=== PATIENT | female | born 1935 | race Caucasian/White ===

== ENCOUNTER 2021-11-17 14:38 | Observation (INO) ==
[2021-11-17 14:59] VITALS: BMI 34.7
[2021-11-17] MEDS ORDERED: DUONEB 0.5 MG/3 MG (3 mL) NEB ONE ×2 (15:33→15:52)
--- NOTE | 2021-11-17 15:56 | RAD ---
HISTORYWEAKNESS, SWELLING BLESTUDYCHEST, 1 VIEWCOMPARISONNoneTECHNIQUEAP view of the chestFINDINGSCardiac silhouette is mildly enlarged. Mediastinal contours appear normal. There are bilateral mild lower lung interstitial opacities. Blunted costophrenic sulci consistent with small pleural effusions. No pneumothorax.IMPRESSIONCardiomegaly with mild bibasilar interstitial opacities that could represent mild pulmonary edema. Small pleural effusions.Electronically signed by: Cirilo Sweet (Nov 17, 2021 15:55:11)
[2021-11-17 15:59] LABS: BASOPHILS % (AUTO) 0.3 % (0.2-1.0); EOSINOPHILS # (AUTO) 0.1 x10^3/uL (0.0-0.2); HEMATOCRIT 40.7 % (36.0-47.0); HEMOGLOBIN 13.3 g/dL (12.0-16.0); LYMPHOCYTES # (AUTO) 0.4 X10^3/uL (1.3-2.9); LYMPHOCYTES % (AUTO) 5.5 % (21.0-51.0); MEAN CORPUSCULAR HEMOGLOBIN 27.4 pg (27.0-34.0); MEAN CORPUSCULAR HGB CONC 32.7 g/dL (33.0-35.0); MEAN CORPUSCULAR VOLUME 83.7 fL (80.0-100.0); MEAN PLATELET VOLUME 9.1 fL (7.4-11.0); MONOCYTES # (AUTO) 0.3 x10^3/uL (0.3-0.8); MONOCYTES % (AUTO) 3.7 % (0.0-13.0); NEUTROPHILS # (AUTO) 7.1 x10^3/uL (2.2-4.8); NEUTROPHILS % (AUTO) 89.5 % (42.0-75.0); RED BLOOD COUNT 4.86 X10^6/uL (3.5-5.4); RED CELL DISTRIBUTION WIDTH 17.5 % (11.6-16.5)
[2021-11-17 16:24] LABS: LACTIC ACID 1.4 mmol/L (0.4-2.0)
[2021-11-17 16:56] LABS: ALBUMIN 2.7 g/dL (3.4-5.0); CALCIUM 8.5 mg/dL (8.5-10.1); CKMB % 3.4 % (<4); COR CA(FOR HYPOALB) 9.5 mg/dL (8.5-10.1); CREATINE KINASE MB 1.2 ng/mL (0-4.0); CREATININE 2.41 mg/dL (0.55-1.02); TOTAL PROTEIN 7.2 g/dL (6.4-8.2)
--- NOTE | 2021-11-17 19:14 | DR.DIZZY ---
HPI Time seen Time Seen by Provider: 11/17/21 17:51 PCP Primary Care Physician: DR. GONZALEZ HPI Comment HPI Comment: A 86 y/o female reerred from her PCPs office to the ED. Sh had been giving some I.M. Lasix in the doctor's office. She had presented there with generalized weakness, poor appetite for some weeks. Noted leg swelling x 2 days. Complaint Chief Complaint:: PT'S DAUGHTER IN LAW STATES PT WAS SENT HERE FROM DR. GONZALEZ'S OFFICE D/T C/O GENERALIZED WEAKNESS & DECREASED APPETITE X WEEKS. PT ALSO C/O BLE SWELLING & REDNESS X2 DAYS. PT DENIES ANY HX OF CHF & COPD. PT WAS GIVEN LASIX IM INJECTION @ DR'S OFFICE [facility]. PT HAS HX OF BLOOD CLOTS. COVID-19 Coronavirus risk:travel/contact w/high risk person: No Has patient experienced Coronavirus symptoms: No Nurses Notes Reviewed Nurses Notes Review: Yes Source History Provided: Patient and Family Member Mode of Arrival Mode of Arrival: Wheelchair Timing Onset of Chief Complaint: 11/03/21 Came on: Gradually Location of Weakness Weakness Location: Generalized Context History of: None Stroke Symptoms: None PMH PMH Past Medical History: Yes Past Medical History: Hypertension Past Surgical History: Yes Surgical History: Angioplasty/Stents and Hysterectomy Family History History of Family Medical Conditions: Yes Family Medical History: Hypertension Travel Risk Coronavirus risk:travel/contact w/high risk person: No Has patient experienced Coronavirus symptoms: No Infectious screening Have you traveled outside the country in the last 6 months?: No Isolation: Standard ROS Review of Systems Constitutional: Malaise, Weakness and Other (poor appetite) Eyes: No Symptoms Reported ENTM: No Symptoms Reported Respiratoy: No Symptoms Reported Cardiovascular: No Symptoms Reported Gastrointestinal/Abdominal: No Symptoms Reported Genitourinary: No Symptoms Reported Neurological: No Symptoms Reported Musculoskeletal: No Symptoms Reported Integumentary: No Symptoms Reported Hematologic/Lymphatic: No Symptoms Reported Endocrine: No Symptoms Reported Psychiatric: No Symptoms Reported PE Vital Signs Vitals: Temperature 95.1 F Pulse Rate 82 Respiratory Rate 60 Blood Pressure 83/58 O2 Sat by Pulse Oximetry 95 General Limitations: No Limitations General Appearance: Alert and In No Apparent Distress Head Head Exam: Normal Inspection, Atraumatic and Normocephalic Eyes Eye exam: Normal Appearance and EOMI ENT ENT Exam: Normal Exam, Normal Oropharynx, Normal External Ear Exam and Mucous Membranes Moist Neck Neck Exam: Normal Inspection, Full ROM and Trachea Midline Chest Chest Inspection: Normal Inspection and Symmetric Chest Wall Rise Respiratory Respiratory Exam: Normal Lung Sounds Bilat Cardiovascular Cardiovascular Exam: Regular Rate, Normal Rhythm, Normal Heart Sounds, +S1 and +S2 Abdominal Exam Abdominal Exam: Normal Inspection, Normal Bowel Sounds and Soft Rectal Rectal Exam: Deferred Extremeties Extremities Exam: Edema (anarsaca with 3+ pitting edema from ankle tp mid thigh b/l. no calf tenerness. ) Back Back Exam: Normal Inspection Neurologic Neurological Exam: Alert and Oriented X3 Psychiatric Psychiatric Exam: Normal Affect and Normal Mood Skin Skin Exam: Intact COURSE Treatment Treatment: Reevaluation 1st: Unchanged Education/Counseling Education/Counseling: Patient, Education and Counseling Educated On: Treatment, Diagnosis, Prognosis and Needs for Follow Up ROR Labs Reviewed Result Diagrams: 11/21/21 05:20 11/21/21 05:20 Laboratory: 11/17/21 15:45 Blood Blood Culture - Final 11/17/21 15:29 Blood Blood Culture - Preliminary WBC 8.0 X10^3/uL (3.6-10.0) 11/17/21 15:29 RBC 4.86 X10^6/uL (3.5-5.4) 11/17/21 15:29 Hgb 13.3 g/dL (12.0-16.0) 11/17/21 15:29 Hct 40.7 % (36.0-47.0) 11/17/21 15:29 MCV 83.7 fL (80.0-100.0) 11/17/21 15:29 MCH 27.4 pg (27.0-34.0) 11/17/21 15:29 MCHC 32.7 g/dL (33.0-35.0) L 11/17/21 15:29 RDW 17.5 % (11.6-16.5) H 11/17/21 15:29 Plt Count 147 X10^3/uL (150.0-450.0) L 11/17/21 15:29 MPV 9.1 fL (7.4-11.0) 11/17/21 15:29 Neut % (Auto) 89.5 % (42.0-75.0) H 11/17/21 15:29 Lymph % (Auto) 5.5 % (21.0-51.0) L 11/17/21 15:29 [place] % (Auto) 3.7 % (0.0-13.0) 11/17/21 15:29 Eos % (Auto) 1.0 % (0.9-2.9) 11/17/21 15:29 Baso % (Auto) 0.3 % (0.2-1.0) 11/17/21 15:29 Neut # (Auto) 7.1 x10^3/uL (2.2-4.8) H 11/17/21 15:29 Lymph # (Auto) 0.4 X10^3/uL (1.3-2.9) L 11/17/21 15:29 [place] # (Auto) 0.3 x10^3/uL (0.3-0.8) 11/17/21 15:29 Eos # (Auto) 0.1 x10^3/uL (0.0-0.2) 11/17/21 15:29 Baso # (Auto) 0.0 X10^3/uL (0.0-0.1) 11/17/21 15:29 Absolute Nucleated RBC 0.1 /100WBC 11/17/21 15:29 PT 18.7 SECONDS (11.8-14.3) 11/17/21 15:29 INR Target Range - 11/17/21 15:29 INR 1.65 (0.8-1.3) H 11/17/21 15:29 APTT 31.0 SECONDS (22.9-36.5) 11/17/21 15:29 PTT Comment - 11/17/21 15:29 D-Dimer 2.99 ug/ml (0.0-0.57) H* 11/17/21 15:29 Sodium 133 mmol/L (136-145) L 11/17/21 15:29 Corrected Sodium 133 mmol/L (136-145) L 11/17/21 15:29 Potassium 5.2 mmol/L (3.5-5.1) H 11/17/21 15:29 Chloride 99 mmol/L (98-107) 11/17/21 15:29 Carbon Dioxide 22.0 mmol/L (21-32) 11/17/21 15:29 BUN 112 mg/dL (7-18) H 11/17/21 15:29 Creatinine 2.41 mg/dL (0.55-1.02) H 11/17/21 15:29 Est GFR (MDRD) Af Amer 24 (>60) L 11/17/21 15:29 Est GFR (MDRD) Non-Af 20 (>60) L 11/17/21 15:29 Glucose 114 mg/dL (65-99) H 11/17/21 15:29 Lactic Acid 1.4 mmol/L (0.4-2.0) 11/17/21 15:29 Calcium 8.5 mg/dL (8.5-10.1) 11/17/21 15: Corrected Calcium 9.5 mg/dL (8.5-10.1) 11/17/21 15: Total Bilirubin 0.80 mg/dL (0.2-1.0) 11/17/21 15:29 AST 49 Units/L (15-37) H 11/17/21 15: ALT 59 Units/L (12-78) 11/17/21 15:29 Alkaline Phosphatase 477 Units/L (46-116) H 11/17/21 15:29 Creatine Kinase 24 Units/L (26-192) L 11/17/21 21:20 CK-MB (CK-2) 1.2 ng/mL (0-4.0) 11/17/21 21:20 CK/CKMB % Calc 5.0 % (<4) 11/17/21 21:20 Troponin I High Sens 7.9 ng/L (4.0-60.0) 11/17/21 21:20 B-Natriuretic Peptide 400 pg/mL (0-79) H 11/17/21 15:29 Total Protein 7.2 g/dL (6.4-8.2) 11/17/21 15: Albumin 2.7 g/dL (3.4-5.0) L 11/17/21 15: Globulin 4.5 g/dL (2.5-4.5) 11/17/21 15:29 Albumin/Globulin Ratio 0.6 Ratio (1.1-2.1) L 11/17/21 15:29 Specimen Type Catherized urine 11/17/21 21:26 Urine Color Yellow (YELLOW) 11/17/21 21: Urine Appearance Clear (CLEAR) 11/17/21 21: Urine pH 5.0 (5.0 - 8.0) 11/17/21 21: Ur Specific [place] 1.010 (1.000-1.030) 11/17/21 21:26 Urine Protein 1+ (NEGATIVE) 11/17/21 21: Urine Glucose (UA) Negative (NEGATIVE) 11/17/21 21: Urine Ketones Negative (NEGATIVE) 11/17/21 21:26 Urine Occult Blood 1+ (NEGATIVE) 11/17/21 21: Urine Nitrite Negative (NEGATIVE) 11/17/21 21: Urine Bilirubin Negative (NEGATIVE) 11/17/21 21: Urine Urobilinogen Normal (NORMAL) 11/17/21 21:26 Ur Leukocyte Esterase 1+ (NEGATIVE) 11/17/21 21:26 Urine RBC 3-5 /HPF (0-3) A 11/17/21 21:26 Urine WBC 3-5 /HPF (0-5) 11/17/21 21:26 Ur Squamous Epith Cells Rare /HPF (NEGATIVE) 11/17/21 21:26 Urine Bacteria Trace /HPF (NEGATIVE) 11/17/21 21: Urine Yeast Moderate /HPF (NEGATIVE) 11/17/21 21:26 Ur Culture Indicated? No/not indicated 11/17/21 21:26 SARS-CoV-2 (PCR) Negative (NEGATIVE) 11/17/21 19:01 Influenza Type A (PCR) Negative (NEGATIVE) 11/17/21 19:01 Influenza Type B (PCR) Negative (NEGATIVE) 11/17/21 19:01 RSV (PCR) Negative (NEGATIVE) 11/17/21 19:01 Opioid Opioid Risk Tool Age (Jv box if 16-45): No History of Preadolescent Sexual Abuse: No Total: 0 Total Score Risk Category: Low Risk Copyright: Meng MOULTON predicting aberrant behaviors Diagnosis Discharge Problem: Anasarca, D-dimer, elevated, Hypoalbuminemia CHF (congestive heart failure) Qualifiers: Heart failure type: unspecified Heart failure chronicity: acute Qualified Code(s): I50.9 - Heart failure, unspecified CKD (chronic kidney disease) Qualifiers: Chronic kidney disease stage: stage 4 (severe) Qualified Code(s): N18.4 - Chronic kidney disease, stage 4 (severe) ADDITIONAL NOTES Additional Notes Additional Notes: Name: Camryn Munoz#: [id number]: [id number] : 1935Sex: FLocation: ER Order Number(s): [id number](s):CHEST, 1 VIEW Ordering Physician: JONAS ANNA Primary Care: Gopal Gonzalez M.D. Service Date: 11/17/21 Service Time: 1514 HISTORY WEAKNESS, SWELLING BLE STUDY CHEST, 1 VIEW COMPARISON None TECHNIQUE AP view of the chest FINDINGS Cardiac silhouette is mildly enlarged. Mediastinal contours appear normal. There are bilateral mild lower lung interstitial opacities. Blunted costophrenic sulci consistent with small pleural effusions. No pneumothorax. IMPRESSION Cardiomegaly with mild bibasilar interstitial opacities that could represent mild pulmonary edema. Small pleural effusions. Electronically signed by: Cirilo Sweet (Nov 17, 2021 15:55:11) Report Electronically signed: 11/17/21 1556 CC: Jonas Anna
[2021-11-17] MEDS ORDERED: ALBUMIN HUMAN 25%- 100 ML 100 ML IV ONE (19:40)
[2021-11-17] MEDS ORDERED: LASIX IVP ONE (19:46)
[2021-11-17] MEDS ORDERED: LASIX ONE (21:11)
[2021-11-17 21:39] LABS: BILIRUBIN,URINE NEGATIVE (NEGATIVE); BLOOD/HEMOGLOBIN,URINE 1+ (NEGATIVE); GLUCOSE, URINE NEGATIVE (NEGATIVE); KETONES,URINE NEGATIVE (NEGATIVE); LEUKOCYTE ESTERASE ,URINE 1+ (NEGATIVE); NITRITES,URINE NEGATIVE (NEGATIVE); PROTEIN,URINE 1+ (NEGATIVE); UROBILINOGEN,URINE NORMAL (NORMAL)
[2021-11-17 21:46] LABS: CREATINE KINASE MB 1.2 ng/mL (0-4.0)
[2021-11-17 21:50] LABS: APPEARANCE,URINE CLEAR (CLEAR); COLOR,URINE YELLOW (YELLOW)
[2021-11-17 21:51] LABS: BACTERIA,URINE TRACE /HPF (NEGATIVE); SQUAMOUS EPITHELIAL CELL,UR RARE /HPF (NEGATIVE); YEAST,URINE MODERATE /HPF (NEGATIVE)
[2021-11-18 05:46] LABS: ALANINE AMINOTRANSFERASE 51 Units/L (12-78); ALBUMIN 3.1 g/dL (3.4-5.0); ALKALINE PHOSPHATASE 394 Units/L (46-116); ASPARTATE AMINO TRANSFERASE 41 Units/L (15-37); BLOOD UREA NITROGEN 113 mg/dL (7-18); CALCIUM 8.4 mg/dL (8.5-10.1); CARBON DIOXIDE 20.3 mmol/L (21-32); CHLORIDE 101 mmol/L (98-107); CKMB % 4.6 % (<4); COR CA(FOR HYPOALB) 9.1 mg/dL (8.5-10.1); CREATINE KINASE 22 Units/L (26-192); CREATINE KINASE MB < 1.0 ng/mL (0-4.0); CREATININE 2.46 mg/dL (0.55-1.02); SODIUM 136 mmol/L (136-145); TOTAL PROTEIN 6.7 g/dL (6.4-8.2); eGFR NON BLACK RACES 20 (>60)
--- NOTE | 2021-11-18 08:58 | US ---
HISTORYRENAL FAILURE, PULMONARY EDEMA, CHFSTUDYRENAL USCOMPARISONNoneTECHNIQUERenal sonogram.FINDINGSThe right kidney measures 7.5 x 3.8 x 3.7 cm. The left kidney measures 7.7 x 4.1 x 4.2 cm. Borderline cortical thickness bilaterally at 1 cm. Normal echogenicity bilaterally. Smooth contours bilaterally. No hydronephrosis. No obvious renal calculus or mass. Normal doppler waveforms are not well identified on either side. [place] catheter in situ. Bilateral pleural effusions incidentally noted.IMPRESSIONThe kidneys are small. Normal doppler waveforms are not identified in the kidneys. This could be secondary to severe arterial stenosis. Consider abdomen CTA for further evaluation.Electronically signed by: Cirilo Sweet (Nov 18, 2021 08:56:59)
[2021-11-18] MEDS ORDERED: ZITHROMAX INJ 500 MG VIAL IV ONE (11:00)
[2021-11-18] MEDS ORDERED: NS 250 ML IV 250 ML IV ONE ×2 (11:01→11:05)
[2021-11-18] MEDS: DIFLUCAN 100 MG IV (MIX by PHARMACY)* 100 MG/50 ML BAG IV SCH (11:08)
[2021-11-18] MEDS: ZITHROMAX INJ 500 MG VIAL 500 MG in NS 250 ML IV 250 ML IV SCH (11:08)
[2021-11-18] MEDS: ZOSYN VIAL 2.25 GRAMS 2.25 G in NS 100 ML IV + SPIKE MINIBAG* 100 ML IV SCH ×3 (11:08→21:54)
--- NOTE | 2021-11-18 18:44 | DR.H&P ---
H&P - History & Physical for Day of: H&P Date: 11/17/21 - Chief Complaint Chief Complaint: Edema, SOB - History of Present Illness History of Present Illness: Patient is a 86 year ol wf who is being admitted due to CHF exacerbation. Patient has a PMH of CHF, DVT and PE, CKD, HTN, chronic pain. Patient is cared for at home by family. Patient reports dyspnea and pain to bilateral lower extremities. Patient was seen [facility] earlier today. Patient's caregiver reports patient's R leg is weeping and L leg is swelling and is 4+ pitting edema, generalized weakness and decreased appetite. Also yeast to skin folds. Patient is a poor historian. 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) - Past Surgical History Surgical History: Cholecystectomy - Family History Family Medical History: Diabetes Mellitus, Cancer - Social History Does patient currently use any type of tobacco product: No Have you used tobacco products in the last 12 months: No Does any household member use tobacco: No Alcohol Use: None Drug Use: Prescription Drugs - Medications Home Medications: No Known Drug Allergies Allergy (Verified 11/17/21 14:59) CONTINUE taking the following medications amlodipine 5 mg PO DAILY 11/18/21 [History] - Review of Systems Constitutional: See HPI Eyes: See HPI ENT: See HPI Respiratory: See HPI Cardiovascular: See HPI Gastrointestinal: See HPI Genitourinary: See HPI Musculoskeletal: See HPI Skin: See HPI Neurological: See HPI - Physical Exam Vital Signs: Temperature 97.6 F Pulse Rate [Bilateral Radial] 87 Pulse Rate 85 Respiratory Rate 34 Blood Pressure [Left Arm] 106/50 Blood Pressure 117/59 O2 Sat by Pulse Oximetry 98 Oriented: Not Oriented Eyes: Normal Ear: Normal Nose: Normal Throat: Normal Respiratory: Diminished Throughout, Rales Throughout Cardiovascular: Murmur, Edema, Other (+4 bilateral lower ext edema) : Other (bruner with adequate uop) Auscultation: Bowel Sounds: Normal, Other (large abdominal hernia) Palpation: Normal Tenderness: Normal Skin: Decreased Turgur, Bruising Musculoskeletal: Instability (Not ambulatory) Psychiatric: Normal Mood Description: Calm, Flat Affect: Flat Speech Pattern: Clear, Inappropriate - Assessment/Plan (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 KVO fluids. Home meds. Oxygen supplementation (chronic oxygen) (5) CKD (chronic kidney disease) Qualifiers: Chronic kidney disease stage: stage 4 (severe) Qualified Code(s): N18.4 - Chronic kidney disease, stage 4 (severe) Status: Acute (6) D-dimer, elevated Status: Chronic - Allergies Allergies/Adverse Reactions: Allergies Allergy/AdvReac Type Severity Reaction Status Date / Time No Known Drug Allergies Allergy Verified 11/17/21 14:59
--- NOTE | 2021-11-18 19:01 | PCM.PROG ---
Progress Note - Subjective Subjective: Patient is a 86 year old chronically appearing white female who was admitted due to CHF and pulm edema. Renal function is mildly worse than baseline; baseline on outpatient labs reviewed through our office reveal baseline creat 1.5-2.0. Patient has PMH of PE and DVT (on Eliquis at home; may need decrease dose). Unable to perform any NM testing on arterys; however creatnine only mildly worse than baseline (monitor). Patient appears SOB; IV lasix BID-watch labs. No other concerns at present. - Past Medical Family Social History Past Med/Fam/Surg Hx: No changes since H&P Allergies: Allergies No Known Drug Allergies Allergy (Verified 11/17/21 14:59) - Review of Systems ROS: No change since H&P - Vital Signs and I&O's Vital Signs: Temperature 97.6 F Pulse Rate [Bilateral Radial] 87 Pulse Rate 85 Respiratory Rate 34 Blood Pressure [Left Arm] 106/50 Blood Pressure 117/59 O2 Sat by Pulse Oximetry 98 Intake and Output: Intake & Output 11/15/21 11/16/21 11/17/21 11/18/21 23:59 23:59 23:59 23:59 Intake Total 120 / 120 880 / 880 Output Total 610 / 610 Balance 100 / 100 270 / 270 - Physical Exam Oriented: Not Oriented Eyes: Normal Ear: Normal Nose: Normal Throat: Normal Respiratory: Generalized, Diminished Cardiovascular: Murmur, Edema, Other (+4 bilateral lower ext edema, with weeping) : Other (bruner with adequate uop) Auscultation: Bowel Sounds: Normal, Other (large abdominal hernia) Palpation: Normal Tenderness: Normal Skin: Decreased Turgur, Bruising Musculoskeletal: Instability (Not ambulatory) Psychiatric: Normal Mood Description: Calm, Flat Affect: Flat Speech Pattern: Clear, Inappropriate - Laboratory and Diagnostics Result Diagrams: 11/17/21 15:29 11/18/21 05:10 Labs: 11/17/21 15:45 Blood Blood Culture - Preliminary Laboratory WBC 8.0 X10^3/uL (3.6-10.0) 11/17/21 15:29 RBC 4.86 X10^6/uL (3.5-5.4) 11/17/21 15:29 Hgb 13.3 g/dL (12.0-16.0) 11/17/21 15: Hct 40.7 % (36.0-47.0) 11/17/21 15: MCV 83.7 fL (80.0-100.0) 11/17/21 15: MCH 27.4 pg (27.0-34.0) 11/17/21 15: MCHC 32.7 g/dL (33.0-35.0) L 11/17/21: RDW 17.5 % (11.6-16.5) H 11/17/21 15: Plt Count 147 X10^3/uL (150.0-450.0) L 11/17/21: MPV 9.1 fL (7.4-11.0) 11/17/21: Neut % (Auto) 89.5 % (42.0-75.0) H 11/17/21: Lymph % (Auto) 5.5 % (21.0-51.0) L 11/17/21: [place] % (Auto) 3.7 % (0.0-13.0) 11/17/21: Eos % (Auto) 1.0 % (0.9-2.9) 11/17/21: Baso % (Auto) 0.3 % (0.2-1.0) 11/17/21: Neut # (Auto) 7.1 x10^3/uL (2.2-4.8) H 11/17/21: Lymph # (Auto) 0.4 X10^3/uL (1.3-2.9) L 11/17/21 15: [place] # (Auto) 0.3 x10^3/uL (0.3-0.8) 11/17/21: Eos # (Auto) 0.1 x10^3/uL (0.0-0.2) 11/17/21: Baso # (Auto) 0.0 X10^3/uL (0.0-0.1) 11/17/21 15: Absolute Nucleated RBC 0.1 /100WBC 11/17/21 15: PT 18.7 SECONDS (11.8-14.3) 01/19/22 15:29 INR Target Range - 11/17/21 15:29 INR 1.65 (0.8-1.3) H 11/17/21 15:29 APTT 31.0 SECONDS (22.9-36.5) 11/17/21 15:29 PTT Comment - 11/17/21 15:29 D-Dimer 2.99 ug/ml (0.0-0.57) H* 11/17/21 15:29 Sodium 136 mmol/L (136-145) 11/18/21 05:10 Corrected Sodium TNP 11/18/21 05:10 Potassium 5.0 mmol/L (3.5-5.1) 11/18/21 05:10 Chloride 101 mmol/L (98-107) 11/18/21 05:10 Carbon Dioxide 20.3 mmol/L (21-32) L 11/18/21 05:10 BUN 113 mg/dL (7-18) H 11/18/21 05:10 Creatinine 2.46 mg/dL (0.55-1.02) H 11/18/21 05:10 Est GFR (MDRD) Af Amer 24 (>60) L 11/18/21 05:10 Est GFR (MDRD) Non-Af 20 (>60) L 11/18/21 05:10 Glucose 103 mg/dL (65-99) H 11/18/21 05:10 Lactic Acid 1.4 mmol/L (0.4-2.0) 11/17/21 15:29 Calcium 8.4 mg/dL (8.5-10.1) L 11/18/21 05:10 Corrected Calcium 9.1 mg/dL (8.5-10.1) 11/18/21 05:10 Total Bilirubin 1.00 mg/dL (0.2-1.0) 11/18/21 05:10 AST 41 Units/L (15-37) H 11/18/21 05:10 ALT 51 Units/L (12-78) 11/18/21 05:10 Alkaline Phosphatase 394 Units/L (46-116) H 11/18/21 05:10 Creatine Kinase 22 Units/L (26-192) L 11/18/21 05:10 CK-MB (CK-2) < 1.0 ng/mL (0-4.0) 11/18/21 05:10 CK/CKMB % Calc 4.6 % (<4) 11/18/21 05:10 Troponin I High Sens 9.2 ng/L (4.0-60.0) 11/18/21 05:10 B-Natriuretic Peptide 400 pg/mL (0-79) H 11/17/21 15:29 Total Protein 6.7 g/dL (6.4-8.2) 11/18/21 05:10 Albumin 3.1 g/dL (3.4-5.0) L 11/18/21 05:10 Globulin 3.6 g/dL (2.5-4.5) 11/18/21 05:10 Albumin/Globulin Ratio 0.9 Ratio (1.1-2.1) L 11/18/21 05:10 Specimen Type Catherized urine 11/17/21 21: Urine Color Yellow (YELLOW) 11/17/21 21: Urine Appearance Clear (CLEAR) 11/17/21 21: Urine pH 5.0 (5.0 - 8.0) 11/17/21 21: Ur Specific [place] 1.010 (1.000-1.030) 11/17/21 21: Urine Protein 1+ (NEGATIVE) 11/17/21 21: Urine Glucose (UA) Negative (NEGATIVE) 11/17/21 21: Urine Ketones Negative (NEGATIVE) 11/17/21 21: Urine Occult Blood 1+ (NEGATIVE) 11/17/21 21: Urine Nitrite Negative (NEGATIVE) 11/17/21 21: Urine Bilirubin Negative (NEGATIVE) 11/17/21 21: Urine Urobilinogen Normal (NORMAL) 11/17/21 21: Ur Leukocyte Esterase 1+ (NEGATIVE) 11/17/21 21: Urine RBC 3-5 /HPF (0-3) A 11/17/21 21: Urine WBC 3-5 /HPF (0-5) 11/17/21 21: Ur Squamous Epith Cells Rare /HPF (NEGATIVE) 11/17/21 21: Urine Bacteria Trace /HPF (NEGATIVE) 11/17/21 21: Urine Yeast Moderate /HPF (NEGATIVE) 11/17/21 21: Ur Culture Indicated? 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 KVO fluids. Home meds. Oxygen supplementation (chronic oxygen) (6) CKD (chronic kidney disease) Status: Acute Qualifiers: Chronic kidney disease stage: stage 4 (severe) Qualified Code(s): N18.4 - Chronic kidney disease, stage 4 (severe) (7) D-dimer, elevated Status: Chronic
[2021-11-18] MEDS: ELIQUIS PO SCH (21:54)
[2021-11-19] MEDS ORDERED: BUTT CREAM (COMPOUND) ONE (00:37)
[2021-11-19] MEDS: ZOSYN VIAL 2.25 GRAMS 2.25 G in NS 100 ML IV + SPIKE MINIBAG* 100 ML IV SCH ×2 (05:12→14:29)
[2021-11-19 06:32] LABS: BASOPHILS # (AUTO) 0.1 X10^3/uL (0.0-0.1); BASOPHILS % (AUTO) 0.8 % (0.2-1.0); EOSINOPHILS # (AUTO) 0.1 x10^3/uL (0.0-0.2); EOSINOPHILS % (AUTO) 1.5 % (0.9-2.9); HEMATOCRIT 35.2 % (36.0-47.0); HEMOGLOBIN 11.6 g/dL (12.0-16.0); LYMPHOCYTES # (AUTO) 0.4 X10^3/uL (1.3-2.9); LYMPHOCYTES % (AUTO) 6.3 % (21.0-51.0); MEAN CORPUSCULAR HEMOGLOBIN 27.5 pg (27.0-34.0); MEAN CORPUSCULAR HGB CONC 32.9 g/dL (33.0-35.0); MEAN CORPUSCULAR VOLUME 83.5 fL (80.0-100.0); MONOCYTES # (AUTO) 0.3 x10^3/uL (0.3-0.8); MONOCYTES % (AUTO) 4.2 % (0.0-13.0); NEUTROPHILS # (AUTO) 5.8 x10^3/uL (2.2-4.8); NEUTROPHILS % (AUTO) 87.2 % (42.0-75.0); RED BLOOD COUNT 4.22 X10^6/uL (3.5-5.4); RED CELL DISTRIBUTION WIDTH 17.6 % (11.6-16.5); WHITE BLOOD COUNT 6.6 X10^3/uL (3.6-10.0)
--- NOTE | 2021-11-19 06:33 | RAD ---
HISTORYDYSPNEASTUDYCHEST, 1 [id number]/19/2022.TECHNIQUEAP view of the chestFINDINGSThe cardiac silhouette is stably enlarged. Mediastinal contours appear stable. Similar appearance of mild hazy and scattered interstitial pulmonary opacities. Blunted costophrenic sulci suspicious for small pleural effusions. No pneumothorax identified. Soft tissue attenuation limits evaluation.IMPRESSIONCardiomegaly with interstitial opacities that may represent mild pulmonary edema. Suspect small pleural effusion. Similar appearance to prior.Electronically signed by: Cirilo Sweet (Nov 19, 2021 06:32:04)
[2021-11-19 06:38] LABS: ALBUMIN 2.8 g/dL (3.4-5.0); CALCIUM 8.4 mg/dL (8.5-10.1); COR CA(FOR HYPOALB) 9.4 mg/dL (8.5-10.1); CREATININE 2.3 mg/dL (0.55-1.02); TOTAL PROTEIN 6.4 g/dL (6.4-8.2)
[2021-11-19] MEDS: DIFLUCAN 100 MG IV (MIX by PHARMACY)* 100 MG/50 ML BAG IV SCH (08:46)
--- NOTE | 2021-11-19 11:20 | PCM.PROG ---
Progress Note - Subjective Subjective: Patient is a 86 year old chronically appearing white female who was admitted due to CHF and pulm edema. Renal function is mildly worse than baseline; baseline on outpatient labs reviewed through our office reveal baseline creat 1.5-2.0. Patient has PMH of PE and DVT (on Eliquis at home; may need decrease dose at discharge due to age and ckd-history of dialysis however no longer on dialysis). SOB has improved. Spoke with patient family. No other concerns at present. Cont orders and lasix. Trend CXR and labs. - Past Medical Family Social History Past Med/Fam/Surg Hx: No changes since H&P Allergies: Allergies No Known Drug Allergies Allergy (Verified 11/17/21 14:59) - Review of Systems ROS: No change since H&P - Vital Signs and I&O's Vital Signs: Temperature 97.4 F Pulse Rate [Bilateral Radial] 98 Pulse Rate 85 Respiratory Rate 28 Blood Pressure [Left Arm] 101/54 Blood Pressure 117/59 O2 Sat by Pulse Oximetry 99 Intake and Output: Intake & Output 11/16/21 11/17/21 11/18/21 11/19/21 23:59 23:59 23:59 23:59 Intake Total 120 / 120 1030 / 1030 0 / 0 Output Total 810 / 810 300 / 300 Balance 100 / 100 220 / 220 -300 / -300 - Physical Exam Oriented: Not Oriented Eyes: Normal Ear: Normal Nose: Normal Throat: Normal Respiratory: Generalized, Diminished Cardiovascular: Murmur, Edema, Other (+4 bilateral lower ext edema, with weeping) : Other (bruner with adequate uop) Auscultation: Bowel Sounds: Normal, Other (large abdominal hernia) Tenderness: Normal Skin: Decreased Turgur, Bruising Musculoskeletal: Instability (Not ambulatory) Psychiatric: Normal Mood Description: Calm, Flat Affect: Flat Speech Pattern: Appropriate - Laboratory and Diagnostics Result Diagrams: 11/19/21 06:05 11/19/21 06:05 Labs: 11/17/21 15:45 Blood Blood Culture - Preliminary Laboratory WBC 6.6 X10^3/uL (3.6-10.0) 11/19/21 06:05 RBC 4.22 X10^6/uL (3.5-5.4) 11/19/21 06:05 Hgb 11.6 g/dL (12.0-16.0) L 11/19/21 06:05 Hct 35.2 % (36.0-47.0) L 11/19/21 06:05 MCV 83.5 fL (80.0-100.0) 11/19/21 06:05 MCH 27.5 pg (27.0-34.0) 11/19/21 06:05 MCHC 32.9 g/dL (33.0-35.0) L 11/19/21 06:05 RDW 17.6 % (11.6-16.5) H 11/19/21 06:05 Plt Count 138 X10^3/uL (150.0-450.0) L 11/19/21 06:05 MPV 9.0 fL (7.4-11.0) 11/19/21 06:05 Neut % (Auto) 87.2 % (42.0-75.0) H 11/19/21 06:05 Lymph % (Auto) 6.3 % (21.0-51.0) L 11/19/21 06:05 [place] % (Auto) 4.2 % (0.0-13.0) 11/19/21 06:05 Eos % (Auto) 1.5 % (0.9-2.9) 11/19/21 06:05 Baso % (Auto) 0.8 % (0.2-1.0) 11/19/21 06:05 Neut # (Auto) 5.8 x10^3/uL (2.2-4.8) H 11/19/21 06:05 Lymph # (Auto) 0.4 X10^3/uL (1.3-2.9) L 11/19/21 06:05 [place] # (Auto) 0.3 x10^3/uL (0.3-0.8) 11/19/21 06:05 Eos # (Auto) 0.1 x10^3/uL (0.0-0.2) 11/19/21 06:05 Baso # (Auto) 0.1 X10^3/uL (0.0-0.1) 11/19/21 06:05 Absolute Nucleated RBC 0.0 /100WBC 11/19/21 06:05 PT 18.1 SECONDS (11.8-14.3) 11/19/21 06:05 INR Target Range - 11/19/21 06:05 INR 1.58 (0.8-1.3) H 11/19/21 06:05 APTT 31.0 SECONDS (22.9-36.5) 11/17/21 15:29 PTT Comment - 11/17/21 15:29 D-Dimer 2.99 ug/ml (0.0-0.57) H* 11/17/21 15:29 Sodium 139 mmol/L (136-145) 11/19/21 06:05 Corrected Sodium 140 mmol/L (136-145) 11/19/21 06:05 Potassium 4.8 mmol/L (3.5-5.1) 11/19/21 06:05 Chloride 105 mmol/L (98-107) 11/19/21 06:05 Carbon Dioxide 22.0 mmol/L (21-32) 11/19/21 06:05 BUN 109 mg/dL (7-18) H 11/19/21 06:05 Creatinine 2.30 mg/dL (0.55-1.02) H 11/19/21 06:05 Est GFR (MDRD) Af Amer 26 (>60) L 11/19/21 06:05 Est GFR (MDRD) Non-Af 21 (>60) L 11/19/21 06:05 Glucose 129 mg/dL (65-99) H 11/19/21 06:05 Lactic Acid 1.4 mmol/L (0.4-2.0) 11/17/21 15:29 Calcium 8.4 mg/dL (8.5-10.1) L 11/19/21 06:05 Corrected Calcium 9.4 mg/dL (8.5-10.1) 11/19/21 06:05 Total Bilirubin 0.90 mg/dL (0.2-1.0) 11/19/21 06:05 AST 45 Units/L (15-37) H 11/19/21 06:05 ALT 53 Units/L (12-78) 11/19/21 06:05 Alkaline Phosphatase 408 Units/L (46-116) H 11/19/21 06:05 Creatine Kinase 22 Units/L (26-192) L 11/18/21 05:10 CK-MB (CK-2) < 1.0 ng/mL (0-4.0) 11/18/21 05:10 CK/CKMB % Calc 4.6 % (<4) 11/18/21 05:10 Troponin I High Sens 9.2 ng/L (4.0-60.0) 11/18/21 05:10 B-Natriuretic Peptide 400 pg/mL (0-79) H 11/17/21 15:29 Total Protein 6.4 g/dL (6.4-8.2) 11/19/21 06:05 Albumin 2.8 g/dL (3.4-5.0) L 11/19/21 06:05 Globulin 3.6 g/dL (2.5-4.5) 11/19/21 06:05 Albumin/Globulin Ratio 0.8 Ratio (1.1-2.1) L 11/19/21 06:05 Specimen Type Catherized urine 11/17/21 21: Urine Color Yellow (YELLOW) 11/17/21 21: Urine Appearance Clear (CLEAR) 11/17/21 21: Urine pH 5.0 (5.0 - 8.0) 11/17/21 21: Ur Specific [place] 1.010 (1.000-1.030) 11/17/21 21: Urine Protein 1+ (NEGATIVE) 11/17/21 21: Urine Glucose (UA) Negative (NEGATIVE) 11/17/21 21: Urine Ketones Negative (NEGATIVE) 11/17/21 21: Urine Occult Blood 1+ (NEGATIVE) 11/17/21 21: Urine Nitrite Negative (NEGATIVE) 11/17/21 21: Urine Bilirubin Negative (NEGATIVE) 11/17/21 21: Urine Urobilinogen Normal (NORMAL) 11/17/21 21: Ur Leukocyte Esterase 1+ (NEGATIVE) 11/17/21 21: Urine RBC 3-5 /HPF (0-3) A 11/17/21 21: Urine WBC 3-5 /HPF (0-5) 11/17/21 21: Ur Squamous Epith Cells Rare /HPF (NEGATIVE) 11/17/21 21: Urine Bacteria Trace /HPF (NEGATIVE) 11/17/21 21: Urine Yeast Moderate /HPF (NEGATIVE) 11/17/21 21:26 Ur Culture Indicated? 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 KVO fluids. Home meds. Oxygen supplementation (chronic oxygen) (6) CKD (chronic kidney disease) Status: Acute Qualifiers: Chronic kidney disease stage: stage 4 (severe) Qualified Code(s): N18.4 - Chronic kidney disease, stage 4 (severe) (7) D-dimer, elevated Status: Chronic
[2021-11-19] MEDS: ELIQUIS PO SCH ×2 (12:08→21:16)
[2021-11-19] MEDS: LASIX IVP SCH ×2 (12:08→17:23)
[2021-11-19] MEDS: ZITHROMAX INJ 500 MG VIAL 500 MG in NS 250 ML IV 250 ML IV SCH (12:09)
[2021-11-19] MEDS ORDERED: NS 250 ML IV 250 ML IV ONE (17:24)
[2021-11-19] MEDS ORDERED: ELIQUIS PO ONE (21:00)
[2021-11-19] MEDS ORDERED: LASIX IVP ONE (21:00)
[2021-11-20] MEDS ORDERED: DIFLUCAN 200 MG IV PREMIX* 200 MG/100 ML BAG IV ONE (13:03)
[2021-11-20 13:33] LABS: ALBUMIN 2.5 g/dL (3.4-5.0); CALCIUM 8.1 mg/dL (8.5-10.1); COR CA(FOR HYPOALB) 9.3 mg/dL (8.5-10.1); CREATININE 2.12 mg/dL (0.55-1.02)
[2021-11-20 13:49] LABS: BASOPHILS % (AUTO) 0.7 % (0.2-1.0); EOSINOPHILS # (AUTO) 0.1 x10^3/uL (0.0-0.2); EOSINOPHILS % (AUTO) 2.1 % (0.9-2.9); HEMOGLOBIN 11.1 g/dL (12.0-16.0); LYMPHOCYTES # (AUTO) 0.3 X10^3/uL (1.3-2.9); LYMPHOCYTES % (AUTO) 4.3 % (21.0-51.0); MEAN CORPUSCULAR HEMOGLOBIN 27.5 pg (27.0-34.0); MEAN CORPUSCULAR HGB CONC 32.5 g/dL (33.0-35.0); MEAN CORPUSCULAR VOLUME 84.5 fL (80.0-100.0); MEAN PLATELET VOLUME 9.2 fL (7.4-11.0); MONOCYTES # (AUTO) 0.3 x10^3/uL (0.3-0.8); MONOCYTES % (AUTO) 3.7 % (0.0-13.0); NEUTROPHILS # (AUTO) 6.2 x10^3/uL (2.2-4.8); NEUTROPHILS % (AUTO) 89.2 % (42.0-75.0); RED BLOOD COUNT 4.03 X10^6/uL (3.5-5.4); RED CELL DISTRIBUTION WIDTH 17.4 % (11.6-16.5); WHITE BLOOD COUNT 6.9 X10^3/uL (3.6-10.0)
[2021-11-20] MEDS: ZOSYN VIAL 2.25 GRAMS 2.25 G in NS 100 ML IV + SPIKE MINIBAG* 100 ML IV SCH ×4 (14:00→21:30)
--- NOTE | 2021-11-20 14:28 | RAD ---
HISTORYShortness of breathSTUDYChest AP portableCOMPARISONNoneFINDINGSThe heart is enlarged. No congestive heart failure is noted. Subtle interstitial infiltrates remain in the right lung but are slightly improved. There is a new focus of consolidation in the medial right lung base, however. Left lung appears clear. Bony thorax is unremarkable.IMPRESSIONSlight improvement right lung interstitial infiltratesNew area of focal consolidation medial right lower lobeLeft lung appears clearElectronically signed by: JAMAAL MORATAYA (Nov 20, 2021 14:26:51)
[2021-11-20] MEDS: ELIQUIS PO SCH ×2 (14:54→21:30)
[2021-11-20] MEDS: ZITHROMAX INJ 500 MG VIAL 500 MG in NS 250 ML IV 250 ML IV SCH (14:55)
[2021-11-20] MEDS: LASIX IVP SCH ×2 (14:55→16:47)
[2021-11-20] MEDS: DIFLUCAN 100 MG IV (MIX by PHARMACY)* 100 MG/50 ML BAG IV SCH (14:55)
--- NOTE | 2021-11-20 17:31 | PCM.PROG ---
Progress Note Progress Note for Day of Date of Exam: 11/20/21 Subjective Subjective: Patient is a 86 year old chronically appearing white female who was admitted due to CHF and pulm edema. Renal function is mildly worse than baseline; baseline on outpatient labs reviewed through our office reveal baseline creat 1.5-2.0. Patient has PMH of PE and DVT (on Eliquis at home; may need decrease dose at discharge due to age and ckd-history of dialysis however no longer on dialysis). SOB has improved. Spoke with patient family. No other concerns at present. Cont orders and lasix. Trend CXR and labs. Past Medical Family Social History Past Med/Fam/Surg Hx: No changes since H&P Allergies: Allergies No Known Drug Allergies Allergy (Verified 11/17/21 14:59) Review of Systems ROS: No change since H&P Vital Signs and I&O's Vital Signs: Temperature 96.9 F Pulse Rate [Bilateral Radial] 86 Pulse Rate 85 Respiratory Rate 20 Blood Pressure [Left Arm] 104/52 Blood Pressure 117/59 O2 Sat by Pulse Oximetry 100 Intake and Output: Intake & Output 11/18/21 11/19/21 11/20/21 11/21/21 11:59 11:59 11:59 11:59 Intake Total 150 / 150 1000 / 1000 410 / 410 900 / 900 Output Total 30 / 30 1100 / 1100 500 / 500 800 / 800 Balance 120 / 120 -100 / -100 -90 / -90 100 / 100 Physical Exam Oriented: Not Oriented Eyes: Normal Ear: Normal Nose: Normal Throat: Normal Respiratory: Generalized and Diminished Cardiovascular: Murmur, Edema and Other (+4 bilateral lower ext edema, with weeping) : Other (bruner with adequate uop) Auscultation: Bowel Sounds: Normal and Other (large abdominal hernia) Tenderness: Normal Skin: Decreased Turgur and Bruising Musculoskeletal: Instability (Not ambulatory) Psychiatric: Normal Mood Description: Calm and Flat Affect: Flat Speech Pattern: Appropriate Laboratory and Diagnostics Result Diagrams: 11/20/21 05:00 11/20/21 05:32 Labs: 11/17/21 15:45 Blood Blood Culture - Final 11/17/21 15:29 Blood Blood Culture - Preliminary Laboratory WBC 6.9 X10^3/uL (3.6-10.0) 11/20/21 05:00 RBC 4.03 X10^6/uL (3.5-5.4) 11/20/21 05:00 Hgb 11.1 g/dL (12.0-16.0) L 11/20/21 05:00 Hct 34.0 % (36.0-47.0) L 11/20/21 05:00 MCV 84.5 fL (80.0-100.0) 11/20/21 05:00 MCH 27.5 pg (27.0-34.0) 11/20/21 05:00 MCHC 32.5 g/dL (33.0-35.0) L 11/20/21 05:00 RDW 17.4 % (11.6-16.5) H 11/20/21 05:00 Plt Count 120 X10^3/uL (150.0-450.0) L 11/20/21 05:00 MPV 9.2 fL (7.4-11.0) 11/20/21 05:00 Neut % (Auto) 89.2 % (42.0-75.0) H 11/20/21 05:00 Lymph % (Auto) 4.3 % (21.0-51.0) L 11/20/21 05:00 [place] % (Auto) 3.7 % (0.0-13.0) 11/20/21 05:00 Eos % (Auto) 2.1 % (0.9-2.9) 11/20/21 05:00 Baso % (Auto) 0.7 % (0.2-1.0) 11/20/21 05:00 Neut # (Auto) 6.2 x10^3/uL (2.2-4.8) H 11/20/21 05:00 Lymph # (Auto) 0.3 X10^3/uL (1.3-2.9) L 11/20/21 05:00 [place] # (Auto) 0.3 x10^3/uL (0.3-0.8) 11/20/21 05:00 Eos # (Auto) 0.1 x10^3/uL (0.0-0.2) 11/20/21 05:00 Baso # (Auto) 0.0 X10^3/uL (0.0-0.1) 11/20/21 05:00 Absolute Nucleated RBC 0.0 /100WBC 11/20/21 05:00 PT 18.1 SECONDS (11.8-14.3) 11/19/21 06:05 INR Target Range - 11/19/21 06:05 INR 1.58 (0.8-1.3) H 11/19/21 06:05 APTT 31.0 SECONDS (22.9-36.5) 11/17/21 15:29 PTT Comment - 11/17/21 15:29 D-Dimer 2.99 ug/ml (0.0-0.57) H* 11/17/21 15:29 Sodium 138 mmol/L (136-145) 11/20/21 05:32 Corrected Sodium 139 mmol/L (136-145) 11/20/21 05:32 Potassium 4.2 mmol/L (3.5-5.1) 11/20/21 05:32 Chloride 105 mmol/L (98-107) 11/20/21 05:32 Carbon Dioxide 24.0 mmol/L (21-32) 11/20/21 05:32 BUN 98 mg/dL (7-18) H 11/20/21 05:32 Creatinine 2.12 mg/dL (0.55-1.02) H 11/20/21 05:32 Est GFR (MDRD) Af Amer 28 (>60) L 11/20/21 05:32 Est GFR (MDRD) Non-Af 23 (>60) L 11/20/21 05:32 Glucose 127 mg/dL (65-99) H 11/20/21 05:32 Lactic Acid 1.4 mmol/L (0.4-2.0) 11/17/21 15:29 Calcium 8.1 mg/dL (8.5-10.1) L 11/20/21 05:32 Corrected Calcium 9.3 mg/dL (8.5-10.1) 11/20/21 05:32 Total Bilirubin 0.60 mg/dL (0.2-1.0) 11/20/21 05:32 AST 41 Units/L (15-37) H 11/20/21 05:32 ALT 49 Units/L (12-78) 11/20/21 05:32 Alkaline Phosphatase 362 Units/L (46-116) H 11/20/21 05:32 Creatine Kinase 22 Units/L (26-192) L 11/18/21 05:10 CK-MB (CK-2) < 1.0 ng/mL (0-4.0) 11/18/21 05:10 CK/CKMB % Calc 4.6 % (<4) 11/18/21 05:10 Troponin I High Sens 9.2 ng/L (4.0-60.0) 11/18/21 05:10 B-Natriuretic Peptide 400 pg/mL (0-79) H 11/17/21 15:29 Total Protein 6.0 g/dL (6.4-8.2) L 11/20/21 05:32 Albumin 2.5 g/dL (3.4-5.0) L 11/20/21 05:32 Globulin 3.5 g/dL (2.5-4.5) 11/20/21 05:32 Albumin/Globulin Ratio 0.7 Ratio (1.1-2.1) L 11/20/21 05:32 Specimen Type Catherized urine 11/17/21 21: Urine Color Yellow (YELLOW) 11/17/21 21: Urine Appearance Clear (CLEAR) 11/17/21 21: Urine pH 5.0 (5.0 - 8.0) 11/17/21 21: Ur Specific [place] 1.010 (1.000-1.030) 11/17/21 21: Urine Protein 1+ (NEGATIVE) 11/17/21 21: Urine Glucose (UA) Negative (NEGATIVE) 11/17/21 21: Urine Ketones Negative (NEGATIVE) 11/17/21 21: Urine Occult Blood 1+ (NEGATIVE) 11/17/21 21: Urine Nitrite Negative (NEGATIVE) 11/17/21 21: Urine Bilirubin Negative (NEGATIVE) 11/17/21 21: Urine Urobilinogen Normal (NORMAL) 11/17/21 21: Ur Leukocyte Esterase 1+ (NEGATIVE) 11/17/21 21: Urine RBC 3-5 /HPF (0-3) A 11/17/21 21:26 Urine WBC 3-5 /HPF (0-5) 11/17/21 21:26 Ur Squamous Epith Cells Rare /HPF (NEGATIVE) 11/17/21 21:26 Urine Bacteria Trace /HPF (NEGATIVE) 11/17/21 21:26 Urine Yeast Moderate /HPF (NEGATIVE) 11/17/21 21:26 Ur Culture Indicated? No/not indicated 11/17/21 21:26 SARS-CoV-2 (PCR) Negative (NEGATIVE) 11/17/21 19:01 Influenza Type A (PCR) Negative (NEGATIVE) 11/17/21 19:01 Influenza Type B (PCR) Negative (NEGATIVE) 11/17/21 19:01 RSV (PCR) Negative (NEGATIVE) 11/17/21 19:01 Radiology Reviewed: Yes Plan (1) Pulmonary edema: Status: Acute Plan: IV lasix (2) History of pulmonary artery thrombosis: Status: Chronic Plan: eliquis po (3) History of DVT (deep vein thrombosis): Status: Chronic (4) Dyspnea: Status: Chronic (5) CHF (congestive heart failure): Status: Acute Qualifiers: Heart failure chronicity: acute Heart failure type: unspecified Qualified Code(s): I50.9 - Heart failure, unspecified Plan: IV lasix KVO fluids Home meds Oxygen supplementation (chronic oxygen) (6) CKD (chronic kidney disease): Status: Acute Qualifiers: Chronic kidney disease stage: stage 4 (severe) Qualified Code(s): N18.4 - Chronic kidney disease, stage 4 (severe) Narrative Support Text: Cr is trending sown. Plan: Continue IVF. (7) D-dimer, elevated: Status: Chronic
[2021-11-21] MEDS: ZOSYN VIAL 2.25 GRAMS 2.25 G in NS 100 ML IV + SPIKE MINIBAG* 100 ML IV SCH ×3 (06:12→21:51)
[2021-11-21 07:17] LABS: BASOPHILS % (AUTO) 0.6 % (0.2-1.0); EOSINOPHILS # (AUTO) 0.2 x10^3/uL (0.0-0.2); EOSINOPHILS % (AUTO) 2.7 % (0.9-2.9); HEMOGLOBIN 11.1 g/dL (12.0-16.0); LYMPHOCYTES # (AUTO) 0.4 X10^3/uL (1.3-2.9); LYMPHOCYTES % (AUTO) 5.8 % (21.0-51.0); MEAN CORPUSCULAR HEMOGLOBIN 27.5 pg (27.0-34.0); MEAN CORPUSCULAR HGB CONC 32.6 g/dL (33.0-35.0); MEAN CORPUSCULAR VOLUME 84.2 fL (80.0-100.0); MEAN PLATELET VOLUME 8.8 fL (7.4-11.0); MONOCYTES # (AUTO) 0.3 x10^3/uL (0.3-0.8); MONOCYTES % (AUTO) 4.4 % (0.0-13.0); NEUTROPHILS # (AUTO) 5.9 x10^3/uL (2.2-4.8); NEUTROPHILS % (AUTO) 86.5 % (42.0-75.0); RED BLOOD COUNT 4.03 X10^6/uL (3.5-5.4); RED CELL DISTRIBUTION WIDTH 18.1 % (11.6-16.5); WHITE BLOOD COUNT 6.9 X10^3/uL (3.6-10.0)
[2021-11-21 07:37] LABS: ALBUMIN 2.5 g/dL (3.4-5.0); CALCIUM 8.2 mg/dL (8.5-10.1); CARBON DIOXIDE 25.1 mmol/L (21-32); COR CA(FOR HYPOALB) 9.4 mg/dL (8.5-10.1); CREATININE 1.96 mg/dL (0.55-1.02); TOTAL PROTEIN 6.2 g/dL (6.4-8.2)
[2021-11-21] MEDS: ZITHROMAX INJ 500 MG VIAL 500 MG in NS 250 ML IV 250 ML IV SCH ×2 (08:24→20:42)
[2021-11-21] MEDS: ELIQUIS PO SCH ×2 (08:24→20:41)
[2021-11-21] MEDS: LASIX IVP SCH (09:52)
[2021-11-21] MEDS: DIFLUCAN 100 MG IV (MIX by PHARMACY)* 100 MG/50 ML BAG IV SCH (09:56)
[2021-11-21] MEDS ORDERED: NYSTATIN POWDER ONE (13:17)
--- NOTE | 2021-11-21 17:05 | PCM.PROG ---
Progress Note Progress Note for Day of Date of Exam: 11/21/21 Subjective Subjective: Patient is a 86 year old chronically appearing white female who was admitted due to CHF and pulm edema. Renal function is mildly worse than baseline; baseline on outpatient labs reviewed through our office reveal baseline creat 1.5-2.0. Patient has PMH of PE and DVT (on Eliquis at home; may need decrease dose at discharge due to age and ckd-history of dialysis however no longer on dialysis). SOB has improved. Spoke with patient family. No other concerns at present. Cont orders and lasix. Trend CXR and labs. Cr 1.96 this am. Past Medical Family Social History Past Med/Fam/Surg Hx: No changes since H&P Allergies: Allergies No Known Drug Allergies Allergy (Verified 11/17/21 14:59) Review of Systems ROS: No change since H&P Vital Signs and I&O's Vital Signs: Temperature 96.0 F Pulse Rate [Bilateral Radial] 86 Pulse Rate 85 Respiratory Rate 20 Blood Pressure [Left Arm] 94/54 Blood Pressure 117/59 O2 Sat by Pulse Oximetry 99 Intake and Output: Intake & Output 11/19/21 11/20/21 11/21/21 11/22/21 11:59 11:59 11:59 11:59 Intake Total 1000 / 1000 410 / 410 1000 / 1000 1271 / 1271 Output Total 1100 / 1100 500 / 500 1650 / 1650 Balance -100 / -100 -90 / -90 -650 / -650 1271 / 1271 Physical Exam Oriented: Not Oriented Eyes: Normal Ear: Normal Nose: Normal Throat: Normal Respiratory: Generalized and Diminished Cardiovascular: Murmur, Edema and Other (+4 bilateral lower ext edema, with weeping) : Other (bruner with adequate uop) Auscultation: Bowel Sounds: Normal and Other (large abdominal hernia) Tenderness: Normal Skin: Decreased Turgur and Bruising Musculoskeletal: Instability (Not ambulatory) Psychiatric: Normal Mood Description: Calm and Flat Affect: Flat Speech Pattern: Appropriate Laboratory and Diagnostics Result Diagrams: 11/21/21 05:20 11/21/21 05:20 Labs: 11/17/21 15:45 Blood Blood Culture - Final 11/17/21 15:29 Blood Blood Culture - Preliminary Laboratory WBC 6.9 X10^3/uL (3.6-10.0) 11/21/21 05:20 RBC 4.03 X10^6/uL (3.5-5.4) 11/21/21 05:20 Hgb 11.1 g/dL (12.0-16.0) L 11/21/21 05:20 Hct 34.0 % (36.0-47.0) L 11/21/21 05:20 MCV 84.2 fL (80.0-100.0) 11/21/21 05:20 MCH 27.5 pg (27.0-34.0) 11/21/21 05:20 MCHC 32.6 g/dL (33.0-35.0) L 11/21/21 05:20 RDW 18.1 % (11.6-16.5) H 11/21/21 05:20 Plt Count 124 X10^3/uL (150.0-450.0) L 11/21/21 05:20 MPV 8.8 fL (7.4-11.0) 11/21/21 05:20 Neut % (Auto) 86.5 % (42.0-75.0) H 11/21/21 05:20 Lymph % (Auto) 5.8 % (21.0-51.0) L 11/21/21 05:20 [place] % (Auto) 4.4 % (0.0-13.0) 11/21/21 05:20 Eos % (Auto) 2.7 % (0.9-2.9) 11/21/21 05:20 Baso % (Auto) 0.6 % (0.2-1.0) 11/21/21 05:20 Neut # (Auto) 5.9 x10^3/uL (2.2-4.8) H 11/21/21 05:20 Lymph # (Auto) 0.4 X10^3/uL (1.3-2.9) L 11/21/21 05:20 [place] # (Auto) 0.3 x10^3/uL (0.3-0.8) 11/21/21 05:20 Eos # (Auto) 0.2 x10^3/uL (0.0-0.2) 11/21/21 05:20 Baso # (Auto) 0.0 X10^3/uL (0.0-0.1) 11/21/21 05:20 Absolute Nucleated RBC 0.1 /100WBC 11/21/21 05:20 PT 18.1 SECONDS (11.8-14.3) 11/19/21 06:05 INR Target Range - 11/19/21 06:05 INR 1.58 (0.8-1.3) H 11/19/21 06:05 APTT 31.0 SECONDS (22.9-36.5) 11/17/21 15:29 PTT Comment - 11/17/21 15:29 D-Dimer 2.99 ug/ml (0.0-0.57) H* 11/17/21 15:29 Sodium 140 mmol/L (136-145) 11/21/21 05:20 Corrected Sodium 140 mmol/L (136-145) 11/21/21 05:20 Potassium 4.2 mmol/L (3.5-5.1) 11/21/21 05:20 Chloride 102 mmol/L (98-107) 11/21/21 05:20 Carbon Dioxide 25.1 mmol/L (21-32) 11/21/21 05:20 BUN 94 mg/dL (7-18) H 11/21/21 05:20 Creatinine 1.96 mg/dL (0.55-1.02) H 11/21/21 05:20 Est GFR (MDRD) Af Amer 31 (>60) L 11/21/21 05:20 Est GFR (MDRD) Non-Af 26 (>60) L 11/21/21 05:20 Glucose 120 mg/dL (65-99) H 11/21/21 05:20 Lactic Acid 1.4 mmol/L (0.4-2.0) 11/17/21 15:29 Calcium 8.2 mg/dL (8.5-10.1) L 11/21/21 05:20 Corrected Calcium 9.4 mg/dL (8.5-10.1) 11/21/21 05:20 Total Bilirubin 0.70 mg/dL (0.2-1.0) 11/21/21 05:20 AST 37 Units/L (15-37) 11/21/21 05:20 ALT 46 Units/L (12-78) 11/21/21 05:20 Alkaline Phosphatase 340 Units/L (46-116) H 11/21/21 05:20 Creatine Kinase 22 Units/L (26-192) L 11/18/21 05:10 CK-MB (CK-2) < 1.0 ng/mL (0-4.0) 11/18/21 05:10 CK/CKMB % Calc 4.6 % (<4) 11/18/21 05:10 Troponin I High Sens 9.2 ng/L (4.0-60.0) 11/18/21 05:10 B-Natriuretic Peptide 400 pg/mL (0-79) H 11/17/21 15:29 Total Protein 6.2 g/dL (6.4-8.2) L 11/21/21 05:20 Albumin 2.5 g/dL (3.4-5.0) L 11/21/21 05:20 Globulin 3.7 g/dL (2.5-4.5) 11/21/21 05:20 Albumin/Globulin Ratio 0.7 Ratio (1.1-2.1) L 11/21/21 05:20 Specimen Type Catherized urine 11/17/21 21:26 Urine Color Yellow (YELLOW) 11/17/21 21: Urine Appearance Clear (CLEAR) 11/17/21 21: Urine pH 5.0 (5.0 - 8.0) 11/17/21 21:26 Ur Specific [place] 1.010 (1.000-1.030) 11/17/21 21: Urine Protein 1+ (NEGATIVE) 11/17/21 21: Urine Glucose (UA) Negative (NEGATIVE) 11/17/21 21: Urine Ketones Negative (NEGATIVE) 11/17/21 21: Urine Occult Blood 1+ (NEGATIVE) 11/17/21 21: Urine Nitrite Negative (NEGATIVE) 11/17/21 21: Urine Bilirubin Negative (NEGATIVE) 11/17/21 21: Urine Urobilinogen Normal (NORMAL) 11/17/21 21:26 Ur Leukocyte Esterase 1+ (NEGATIVE) 11/17/21 21: Urine RBC 3-5 /HPF (0-3) A 11/17/21 21: Urine WBC 3-5 /HPF (0-5) 11/17/21 21:26 Ur Squamous Epith Cells Rare /HPF (NEGATIVE) 11/17/21 21:26 Urine Bacteria Trace /HPF (NEGATIVE) 11/17/21 21:26 Urine Yeast Moderate /HPF (NEGATIVE) 11/17/21 21:26 Ur Culture Indicated? No/not indicated 11/17/21 21:26 SARS-CoV-2 (PCR) Negative (NEGATIVE) 11/17/21 19:01 Influenza Type A (PCR) Negative (NEGATIVE) 11/17/21 19:01 Influenza Type B (PCR) Negative (NEGATIVE) 11/17/21 19:01 RSV (PCR) Negative (NEGATIVE) 11/17/21 19:01 Plan (1) Pulmonary edema: Status: Acute Plan: IV lasix. Check BNP and CXR in am. (2) History of pulmonary artery thrombosis: Status: Chronic Plan: eliquis po (3) History of DVT (deep vein thrombosis): Status: Chronic (4) Dyspnea: Status: Chronic (5) CHF (congestive heart failure): Status: Acute Qualifiers: Heart failure chronicity: acute Heart failure type: unspecified Qualified Code(s): I50.9 - Heart failure, unspecified Plan: IV lasix KVO fluids Home meds Oxygen supplementation (chronic oxygen) (6) CKD (chronic kidney disease): Status: Acute Qualifiers: Chronic kidney disease stage: stage 4 (severe) Qualified Code(s): N18.4 - Chronic kidney disease, stage 4 (severe) Plan: Continue IVF. (7) D-dimer, elevated: Status: Chronic
[2021-11-21] MEDS ORDERED: NS 250 ML IV 250 ML IV ONE (18:29)
[2021-11-22] MEDS: ZOSYN VIAL 2.25 GRAMS 2.25 G in NS 100 ML IV + SPIKE MINIBAG* 100 ML IV SCH ×3 (05:47→22:24)
[2021-11-22 06:02] LABS: CALCIUM 8.1 mg/dL (8.5-10.1); CARBON DIOXIDE 27.4 mmol/L (21-32); CREATININE 1.91 mg/dL (0.55-1.02)
[2021-11-22 06:07] LABS: BASOPHILS % (AUTO) 0.7 % (0.2-1.0); EOSINOPHILS # (AUTO) 0.2 x10^3/uL (0.0-0.2); EOSINOPHILS % (AUTO) 2.7 % (0.9-2.9); HEMATOCRIT 32.1 % (36.0-47.0); HEMOGLOBIN 10.4 g/dL (12.0-16.0); LYMPHOCYTES # (AUTO) 0.4 X10^3/uL (1.3-2.9); LYMPHOCYTES % (AUTO) 6.6 % (21.0-51.0); MEAN CORPUSCULAR HEMOGLOBIN 27.4 pg (27.0-34.0); MEAN CORPUSCULAR HGB CONC 32.3 g/dL (33.0-35.0); MEAN CORPUSCULAR VOLUME 84.9 fL (80.0-100.0); MEAN PLATELET VOLUME 8.8 fL (7.4-11.0); MONOCYTES # (AUTO) 0.3 x10^3/uL (0.3-0.8); MONOCYTES % (AUTO) 4.7 % (0.0-13.0); NEUTROPHILS # (AUTO) 5.5 x10^3/uL (2.2-4.8); NEUTROPHILS % (AUTO) 85.3 % (42.0-75.0); RED BLOOD COUNT 3.78 X10^6/uL (3.5-5.4); RED CELL DISTRIBUTION WIDTH 17.5 % (11.6-16.5); WHITE BLOOD COUNT 6.5 X10^3/uL (3.6-10.0)
[2021-11-22 06:33] LABS: ALBUMIN 2.3 g/dL (3.4-5.0); COR CA(FOR HYPOALB) 9.5 mg/dL (8.5-10.1); TOTAL PROTEIN 5.9 g/dL (6.4-8.2)
--- NOTE | 2021-11-22 06:57 | RAD ---
HISTORYPULMONARY EDEMA, CHFSTUDYCHEST, 1 [id number]/22/2022.TECHNIQUEAP view of the chestFINDINGSRight subclavian central line is in good position. The cardiac silhouette is stably enlarged. Mediastinal contours appear stable. No significant change in mild bibasilar predominant airspace opacities. Suspect small pleural effusions. No pneumothorax. Soft tissue attenuation limits evaluation.IMPRESSIONNo significant change.Electronically signed by: Cirilo Sweet (Nov 22, 2021 06:55:21)
[2021-11-22] MEDS: LASIX IVP SCH ×3 (07:09→18:04)
[2021-11-22] MEDS: ELIQUIS PO SCH ×2 (08:54→20:53)
[2021-11-22] MEDS: ZITHROMAX INJ 500 MG VIAL 500 MG in NS 250 ML IV 250 ML IV SCH (08:54)
[2021-11-22] MEDS: DIFLUCAN 100 MG IV (MIX by PHARMACY)* 100 MG/50 ML BAG IV SCH (08:56)
--- NOTE | 2021-11-22 15:38 | PCM.PROG ---
Progress Note - Subjective Subjective: Patient is an 86 year old chronically ill appearing white female who was admitted due to CHF and pulm edema. Renal function has improved. Patient reports SOB has improved as well. Spoke with patient family. No other concerns at present. Cont orders and lasix. Trend CXR and labs. - Past Medical Family Social History Past Med/Fam/Surg Hx: No changes since H&P Allergies: Allergies No Known Drug Allergies Allergy (Verified 11/17/21 14:59) - Review of Systems ROS: No change since H&P - Vital Signs and I&O's Vital Signs: Temperature 97.0 F Pulse Rate [Bilateral Radial] 84 Pulse Rate 85 Respiratory Rate 20 Blood Pressure [Left Arm] 87/50 Blood Pressure 117/59 O2 Sat by Pulse Oximetry 98 Intake and Output: Intake & Output 11/19/21 11/20/21 11/21/21 11/22/21 23:59 23:59 23:59 23:59 Intake Total 410 / 410 1000 / 1000 1783 / 1783 380 / 380 Output Total 800 / 800 1450 / 1450 800 / 800 4 / 4 Balance -390 / -390 -450 / -450 983 / 983 376 / 376 - Physical Exam Oriented: Place Eyes: Normal Ear: Normal Nose: Normal Throat: Normal Respiratory: Generalized, Diminished Cardiovascular: Murmur, Edema, Other (+4 bilateral lower ext edema, with weeping) : Other (bruner with adequate uop) Auscultation: Bowel Sounds: Normal, Other (large abdominal hernia) Palpation: Normal Tenderness: Normal Skin: Decreased Turgur, Bruising Musculoskeletal: Instability (Not ambulatory) Psychiatric: Normal Mood Description: Calm, Flat Affect: Flat Speech Pattern: Clear, Appropriate - Laboratory and Diagnostics Result Diagrams: 11/22/21 05:29 11/22/21 05:29 Labs: 11/17/21 15:45 Blood Blood Culture - Final 11/17/21 15:29 Blood Blood Culture - Preliminary Laboratory WBC 6.5 X10^3/uL (3.6-10.0) 11/22/21 05:29 RBC 3.78 X10^6/uL (3.5-5.4) 11/22/21 05:29 Hgb 10.4 g/dL (12.0-16.0) L 11/22/21 05:29 Hct 32.1 % (36.0-47.0) L 11/22/21 05:29 MCV 84.9 fL (80.0-100.0) 11/22/21 05:29 MCH 27.4 pg (27.0-34.0) 11/22/21 05:29 MCHC 32.3 g/dL (33.0-35.0) L 11/22/21 05:29 RDW 17.5 % (11.6-16.5) H 11/22/21 05:29 Plt Count 123 X10^3/uL (150.0-450.0) L 11/22/21 05:29 MPV 8.8 fL (7.4-11.0) 11/22/21 05:29 Neut % (Auto) 85.3 % (42.0-75.0) H 11/22/21 05:29 Lymph % (Auto) 6.6 % (21.0-51.0) L 11/22/21 05:29 [place] % (Auto) 4.7 % (0.0-13.0) 11/22/21 05:29 Eos % (Auto) 2.7 % (0.9-2.9) 11/22/21 05:29 Baso % (Auto) 0.7 % (0.2-1.0) 11/22/21 05:29 Neut # (Auto) 5.5 x10^3/uL (2.2-4.8) H 11/22/21 05:29 Lymph # (Auto) 0.4 X10^3/uL (1.3-2.9) L 11/22/21 05:29 [place] # (Auto) 0.3 x10^3/uL (0.3-0.8) 11/22/21 05:29 Eos # (Auto) 0.2 x10^3/uL (0.0-0.2) 11/22/21 05:29 Baso # (Auto) 0.0 X10^3/uL (0.0-0.1) 11/22/21 05:29 Absolute Nucleated RBC 0.0 /100WBC 11/22/21 05:29 PT 18.1 SECONDS (11.8-14.3) 11/19/21 06:05 INR Target Range - 11/19/21 06:05 INR 1.58 (0.8-1.3) H 11/19/21 06:05 APTT 31.0 SECONDS (22.9-36.5) 11/17/21 15:29 PTT Comment - 11/17/21 15:29 D-Dimer 2.99 ug/ml (0.0-0.57) H* 11/17/21 15:29 Sodium 141 mmol/L (136-145) 11/22/21 05:29 Corrected Sodium 142 mmol/L (136-145) 11/22/21 05:29 Potassium 3.9 mmol/L (3.5-5.1) 11/22/21 05:29 Chloride 105 mmol/L (98-107) 11/22/21 05:29 Carbon Dioxide 27.4 mmol/L (21-32) 11/22/21 05:29 BUN 90 mg/dL (7-18) H 11/22/21 05:29 Creatinine 1.91 mg/dL (0.55-1.02) H 11/22/21 05:29 Est GFR (MDRD) Af Amer 32 (>60) L 11/22/21 05:29 Est GFR (MDRD) Non-Af 26 (>60) L 11/22/21 05:29 Glucose 122 mg/dL (65-99) H 11/22/21 05:29 Lactic Acid 1.4 mmol/L (0.4-2.0) 11/17/21 15:29 Calcium 8.1 mg/dL (8.5-10.1) L 11/22/21 05:29 Corrected Calcium 9.5 mg/dL (8.5-10.1) 11/22/21 05:29 Total Bilirubin 0.60 mg/dL (0.2-1.0) 11/22/21 05:29 AST 36 Units/L (15-37) 11/22/21 05:29 ALT 46 Units/L (12-78) 11/22/21 05:29 Alkaline Phosphatase 267 Units/L (46-116) H 11/22/21 05:29 Creatine Kinase 22 Units/L (26-192) L 11/18/21 05:10 CK-MB (CK-2) < 1.0 ng/mL (0-4.0) 11/18/21 05:10 CK/CKMB % Calc 4.6 % (<4) 11/18/21 05:10 Troponin I High Sens 9.2 ng/L (4.0-60.0) 11/18/21 05:10 B-Natriuretic Peptide 334 pg/mL (0-79) H 11/22/21 05:29 Total Protein 5.9 g/dL (6.4-8.2) L 11/22/21 05:29 Albumin 2.3 g/dL (3.4-5.0) L 11/22/21 05:29 Globulin 3.6 g/dL (2.5-4.5) 11/22/21 05:29 Albumin/Globulin Ratio 0.6 Ratio (1.1-2.1) L 11/22/21 05:29 Specimen Type Catherized urine 11/17/21 21: Urine Color Yellow (YELLOW) 11/17/21 21: Urine Appearance Clear (CLEAR) 11/17/21 21: Urine pH 5.0 (5.0 - 8.0) 11/17/21 21: Ur Specific [place] 1.010 (1.000-1.030) 11/17/21 21: Urine Protein 1+ (NEGATIVE) 11/17/21 21: Urine Glucose (UA) Negative (NEGATIVE) 11/17/21 21: Urine Ketones Negative (NEGATIVE) 11/17/21 21: Urine Occult Blood 1+ (NEGATIVE) 11/17/21 21: Urine Nitrite Negative (NEGATIVE) 11/17/21 21: Urine Bilirubin Negative (NEGATIVE) 11/17/21 21: Urine Urobilinogen Normal (NORMAL) 11/17/21 21:26 Ur Leukocyte Esterase 1+ (NEGATIVE) 11/17/21 21: Urine RBC 3-5 /HPF (0-3) A 11/17/21 21: Urine WBC 3-5 /HPF (0-5) 11/17/21 21: Ur Squamous Epith Cells Rare /HPF (NEGATIVE) 11/17/21 21: Urine Bacteria Trace /HPF (NEGATIVE) 11/17/21 21: Urine Yeast Moderate /HPF (NEGATIVE) 11/17/21 21: Ur Culture Indicated? No/not indicated 11/17/21 21: SARS-CoV-2 (PCR) Negative (NEGATIVE) 11/17/21 19:01 Influenza Type A (PCR) Negative (NEGATIVE) 11/17/21 19:01 Influenza Type B (PCR) Negative (NEGATIVE) 11/17/21 19:01 RSV (PCR) Negative (NEGATIVE) 11/17/21 19:01 - Plan (1) Pulmonary edema Status: Acute Plan: IV lasix. Check BNP and CXR in am. 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 KVO fluids. Home meds. Oxygen supplementation (6) CKD (chronic kidney disease) Status: Chronic Qualifiers: Chronic kidney disease stage: stage 4 (severe) Qualified Code(s): N18.4 - Chronic kidney disease, stage 4 (severe) Plan: History of being on dialysis; no longer on dialysis (7) D-dimer, elevated Status: Chronic (8) Acute on chronic renal failure Status: Acute Plan: Improved
[2021-11-23] MEDS: ZOSYN VIAL 2.25 GRAMS 2.25 G in NS 100 ML IV + SPIKE MINIBAG* 100 ML IV SCH ×3 (05:08→21:12)
--- NOTE | 2021-11-23 06:20 | RAD ---
HISTORYFollow-up pulmonary edemaSTUDYChest AP [id number] heart is enlarged. No congestive heart failure is noted. The lungs appear free of acute infiltrates on today's examination. There is some residual subsegmental atelectasis peripherally in the left midlung. No pleural effusion or pneumothorax is identified. Bony thorax is unremarkable.IMPRESSIONCardiomegaly without congestive heart failureNo definite residual infiltratesSubsegmental atelectasis left lung base unchangedElectronically signed by: JAMAAL MORATAYA (Nov 23, 2021 06:18:14)
[2021-11-23 06:25] LABS: BASOPHILS % (AUTO) 0.5 % (0.2-1.0); EOSINOPHILS # (AUTO) 0.1 x10^3/uL (0.0-0.2); HEMATOCRIT 32.4 % (36.0-47.0); HEMOGLOBIN 10.3 g/dL (12.0-16.0); LYMPHOCYTES # (AUTO) 0.4 X10^3/uL (1.3-2.9); LYMPHOCYTES % (AUTO) 5.8 % (21.0-51.0); MEAN CORPUSCULAR HEMOGLOBIN 27.2 pg (27.0-34.0); MEAN CORPUSCULAR HGB CONC 31.8 g/dL (33.0-35.0); MEAN CORPUSCULAR VOLUME 85.4 fL (80.0-100.0); MEAN PLATELET VOLUME 8.9 fL (7.4-11.0); MONOCYTES # (AUTO) 0.3 x10^3/uL (0.3-0.8); MONOCYTES % (AUTO) 4.6 % (0.0-13.0); NEUTROPHILS # (AUTO) 5.8 x10^3/uL (2.2-4.8); NEUTROPHILS % (AUTO) 87.1 % (42.0-75.0); RED BLOOD COUNT 3.79 X10^6/uL (3.5-5.4); RED CELL DISTRIBUTION WIDTH 18.1 % (11.6-16.5); WHITE BLOOD COUNT 6.6 X10^3/uL (3.6-10.0)
[2021-11-23 06:27] LABS: BLOOD UREA NITROGEN 82 mg/dL (7-18); CALCIUM 8.2 mg/dL (8.5-10.1); CARBON DIOXIDE 29.7 mmol/L (21-32); CHLORIDE 105 mmol/L (98-107); CREATININE 1.88 mg/dL (0.55-1.02); SODIUM 142 mmol/L (136-145); eGFR NON BLACK RACES 27 (>60)
[2021-11-23 07:21] LABS: ALANINE AMINOTRANSFERASE 71 Units/L (12-78); ALBUMIN 2.3 g/dL (3.4-5.0); ALKALINE PHOSPHATASE 230 Units/L (46-116); ASPARTATE AMINO TRANSFERASE 64 Units/L (15-37); COR CA(FOR HYPOALB) 9.6 mg/dL (8.5-10.1); TOTAL PROTEIN 5.9 g/dL (6.4-8.2)
[2021-11-23] MEDS: ELIQUIS PO SCH ×2 (08:25→20:52)
[2021-11-23] MEDS: ZITHROMAX INJ 500 MG VIAL 500 MG in NS 250 ML IV 250 ML IV SCH (08:25)
[2021-11-23] MEDS: LASIX IVP SCH ×2 (09:46→16:00)
[2021-11-23] MEDS: DIFLUCAN 100 MG IV (MIX by PHARMACY)* 100 MG/50 ML BAG IV SCH (10:00)
[2021-11-23] MEDS ORDERED: NS 250 ML IV 250 ML IV ONE (10:21)
[2021-11-24] MEDS: ZOSYN VIAL 2.25 GRAMS 2.25 G in NS 100 ML IV + SPIKE MINIBAG* 100 ML IV SCH (05:30)
[2021-11-24 06:35] LABS: BASOPHILS # (AUTO) 0.1 X10^3/uL (0.0-0.1); BASOPHILS % (AUTO) 1.2 % (0.2-1.0); EOSINOPHILS # (AUTO) 0.1 x10^3/uL (0.0-0.2); EOSINOPHILS % (AUTO) 2.2 % (0.9-2.9); HEMATOCRIT 31.2 % (36.0-47.0); HEMOGLOBIN 10.2 g/dL (12.0-16.0); LYMPHOCYTES # (AUTO) 0.4 X10^3/uL (1.3-2.9); LYMPHOCYTES % (AUTO) 5.4 % (21.0-51.0); MEAN CORPUSCULAR HEMOGLOBIN 27.7 pg (27.0-34.0); MEAN CORPUSCULAR HGB CONC 32.7 g/dL (33.0-35.0); MEAN CORPUSCULAR VOLUME 84.8 fL (80.0-100.0); MEAN PLATELET VOLUME 8.6 fL (7.4-11.0); MONOCYTES # (AUTO) 0.3 x10^3/uL (0.3-0.8); MONOCYTES % (AUTO) 4.6 % (0.0-13.0); NEUTROPHILS # (AUTO) 5.8 x10^3/uL (2.2-4.8); NEUTROPHILS % (AUTO) 86.6 % (42.0-75.0); RED BLOOD COUNT 3.68 X10^6/uL (3.5-5.4); WHITE BLOOD COUNT 6.7 X10^3/uL (3.6-10.0)
[2021-11-24 07:21] LABS: ALANINE AMINOTRANSFERASE 88 Units/L (12-78); ALBUMIN 2.2 g/dL (3.4-5.0); ALKALINE PHOSPHATASE 207 Units/L (46-116); ASPARTATE AMINO TRANSFERASE 73 Units/L (15-37); BLOOD UREA NITROGEN 74 mg/dL (7-18); CALCIUM 8.4 mg/dL (8.5-10.1); CARBON DIOXIDE 29.6 mmol/L (21-32); CHLORIDE 106 mmol/L (98-107); COR CA(FOR HYPOALB) 9.8 mg/dL (8.5-10.1); CREATININE 1.69 mg/dL (0.55-1.02); SODIUM 144 mmol/L (136-145); eGFR NON BLACK RACES 30 (>60)
[2021-11-24] MEDS: ELIQUIS PO SCH (08:37)
[2021-11-24] MEDS: ZITHROMAX INJ 500 MG VIAL 500 MG in NS 250 ML IV 250 ML IV SCH (08:37)
[2021-11-24] MEDS: DIFLUCAN 100 MG IV (MIX by PHARMACY)* 100 MG/50 ML BAG IV SCH (08:47)
[2021-11-24] MEDS: LASIX IVP SCH (09:09)
[2021-11-24 12:28] VITALS: BP 103/53
[2021-11-24] MEDS ORDERED: ULTRAM PO PRN (12:54)
--- NOTE | 2021-12-16 15:12 | PCM.PROG ---
Progress Note - Progress Note for Day of Date of Exam: 11/23/21 - Subjective Subjective: Patient is an 86 year old chronically ill appearing white female who was admitted due to CHF and pulm edema. Renal function has improved. Patient reports SOB has improved as well. Spoke with patient family. No other concerns at present. Cont orders and lasix. Trend CXR and labs. Possible dc in am. - Past Medical Family Social History Past Med/Fam/Surg Hx: No changes since H&P Allergies: Allergies No Known Drug Allergies Allergy (Verified 11/17/21 14:59) - Review of Systems ROS: No change since H&P - Vital Signs and I&O's Vital Signs: Temperature 97.4 F Pulse Rate [Bilateral Radial] 92 Pulse Rate 85 Respiratory Rate 16 Blood Pressure [Left Arm] 103/53 Blood Pressure 117/59 O2 Sat by Pulse Oximetry 100 - Physical Exam Oriented: Place Eyes: Normal Ear: Normal Nose: Normal Throat: Normal Respiratory: Generalized, Diminished Cardiovascular: Murmur, Edema, Other (+4 bilateral lower ext edema, with weep ing) : Other (bruner with adequate uop) Auscultation: Bowel Sounds: Normal, Other (large abdominal hernia) Palpation: Normal Tenderness: Normal Skin: Decreased Turgur, Bruising Musculoskeletal: Instability (Not ambulatory) Psychiatric: Normal Mood Description: Calm, Flat Affect: Flat Speech Pattern: Clear, Appropriate - Laboratory and Diagnostics Result Diagrams: 11/24/21 05:15 11/24/21 05:15 Labs: 11/17/21 15:29 Blood Blood Culture - Final 11/17/21 15:45 Blood Blood Culture - Final Laboratory WBC 6.7 X10^3/uL (3.6-10.0) 11/24/21 05:15 RBC 3.68 X10^6/uL (3.5-5.4) 11/24/21 05:15 Hgb 10.2 g/dL (12.0-16.0) L 11/24/21 05:15 Hct 31.2 % (36.0-47.0) L 11/24/21 05:15 MCV 84.8 fL (80.0-100.0) 11/24/21 05:15 MCH 27.7 pg (27.0-34.0) 11/24/21 05:15 MCHC 32.7 g/dL (33.0-35.0) L 11/24/21 05:15 RDW 18.0 % (11.6-16.5) H 11/24/21 05:15 Plt Count 126 X10^3/uL (150.0-450.0) L 11/24/21 05:15 MPV 8.6 fL (7.4-11.0) 11/24/21 05:15 Neut % (Auto) 86.6 % (42.0-75.0) H 11/24/21 05:15 Lymph % (Auto) 5.4 % (21.0-51.0) L 11/24/21 05:15 [place] % (Auto) 4.6 % (0.0-13.0) 11/24/21 05:15 Eos % (Auto) 2.2 % (0.9-2.9) 11/24/21 05:15 Baso % (Auto) 1.2 % (0.2-1.0) H 11/24/21 05:15 Neut # (Auto) 5.8 x10^3/uL (2.2-4.8) H 11/24/21 05:15 Lymph # (Auto) 0.4 X10^3/uL (1.3-2.9) L 11/24/21 05:15 [place] # (Auto) 0.3 x10^3/uL (0.3-0.8) 11/24/21 05:15 Eos # (Auto) 0.1 x10^3/uL (0.0-0.2) 11/24/21 05:15 Baso # (Auto) 0.1 X10^3/uL (0.0-0.1) 11/24/21 05:15 Absolute Nucleated RBC 0.0 /100WBC 11/24/21 05:15 PT 18.1 SECONDS (11.8-14.3) 11/19/21 06:05 INR Target Range - 11/19/21 06:05 INR 1.58 (0.8-1.3) H 11/19/21 06:05 APTT 31.0 SECONDS (22.9-36.5) 11/17/21 15:29 PTT Comment - 11/17/21 15:29 D-Dimer 2.99 ug/ml (0.0-0.57) H* 11/17/21 15:29 Sodium 144 mmol/L (136-145) 11/24/21 05:15 Corrected Sodium TNP 11/24/21 05:15 Potassium 3.9 mmol/L (3.5-5.1) 11/24/21 05:15 Chloride 106 mmol/L (98-107) 11/24/21 05:15 Carbon Dioxide 29.6 mmol/L (21-32) 11/24/21 05:15 BUN 74 mg/dL (7-18) H 11/24/21 05:15 Creatinine 1.69 mg/dL (0.55-1.02) H 11/24/21 05:15 Est GFR (MDRD) Af Amer 37 (>60) L 11/24/21 05:15 Est GFR (MDRD) Non-Af 30 (>60) L 11/24/21 05:15 Glucose 110 mg/dL (65-99) H 11/24/21 05:15 Lactic Acid 1.4 mmol/L (0.4-2.0) 11/17/21 15:29 Calcium 8.4 mg/dL (8.5-10.1) L 11/24/21 05:15 Corrected Calcium 9.8 mg/dL (8.5-10.1) 11/24/21 05:15 Total Bilirubin 0.60 mg/dL (0.2-1.0) 11/24/21 05:15 AST 73 Units/L (15-37) H 11/24/21 05:15 ALT 88 Units/L (12-78) H 11/24/21 05:15 Alkaline Phosphatase 207 Units/L (46-116) H 11/24/21 05:15 Creatine Kinase 22 Units/L (26-192) L 11/18/21 05:10 CK-MB (CK-2) < 1.0 ng/mL (0-4.0) 11/18/21 05:10 CK/CKMB % Calc 4.6 % (<4) 11/18/21 05:10 Troponin I High Sens 9.2 ng/L (4.0-60.0) 11/18/21 05:10 B-Natriuretic Peptide 334 pg/mL (0-79) H 11/22/21 05:29 Total Protein 6.0 g/dL (6.4-8.2) L 11/24/21 05:15 Albumin 2.2 g/dL (3.4-5.0) L 11/24/21 05:15 Globulin 3.8 g/dL (2.5-4.5) 11/24/21 05:15 Albumin/Globulin Ratio 0.6 Ratio (1.1-2.1) L 11/24/21 05:15 Specimen Type Catherized urine 11/17/21 21: Urine Color Yellow (YELLOW) 11/17/21 21: Urine Appearance Clear (CLEAR) 11/17/21 21: Urine pH 5.0 (5.0 - 8.0) 11/17/21 21: Ur Specific [place] 1.010 (1.000-1.030) 11/17/21 21: Urine Protein 1+ (NEGATIVE) 11/17/21 21: Urine Glucose (UA) Negative (NEGATIVE) 11/17/21 21: Urine Ketones Negative (NEGATIVE) 11/17/21 21: Urine Occult Blood 1+ (NEGATIVE) 11/17/21 21: Urine Nitrite Negative (NEGATIVE) 11/17/21 21: Urine Bilirubin Negative (NEGATIVE) 11/17/21 21: Urine Urobilinogen Normal (NORMAL) 11/17/21 21: Ur Leukocyte Esterase 1+ (NEGATIVE) 11/17/21 21:26 Urine RBC 3-5 /HPF (0-3) A 11/17/21 21: Urine WBC 3-5 /HPF (0-5) 11/17/21 21: Ur Squamous Epith Cells Rare /HPF (NEGATIVE) 11/17/21 21:26 Urine Bacteria Trace /HPF (NEGATIVE) 11/17/21 21: Urine Yeast Moderate /HPF (NEGATIVE) 11/17/21 21: Ur Culture Indicated? No/not indicated 11/17/21 21: SARS-CoV-2 (PCR) Negative (NEGATIVE) 11/17/21 19:01 Influenza Type A (PCR) Negative (NEGATIVE) 11/17/21 19:01 Influenza Type B (PCR) Negative (NEGATIVE) 11/17/21 19:01 RSV (PCR) Negative (NEGATIVE) 11/17/21 19:01 - Plan (1) Pulmonary edema Status: Acute Plan: IV lasix. Check BNP and CXR in am. 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 KVO fluids. Home meds. Oxygen supplementation (6) CKD (chronic kidney disease) Status: Chronic Qualifiers: Chronic kidney disease stage: stage 4 (severe) Qualified Code(s): N18.4 - Chronic kidney disease, stage 4 (severe) Plan: History of being on dialysis; no longer on dialysis (7) D-dimer, elevated Status: Chronic (8) Acute on chronic renal failure Status: Acute Plan: Improved
--- NOTE | 2021-12-16 15:16 | PCM.DCPLAN ---
Discharge Plan - Discharge Plan Hospital Course: Admit date 11/17/20 Discharge date 11/24/20 DOS 11/24/20 Admit diagnosis(1) History of pulmonary artery thrombosis (2) History of DVT (deep vein thrombosis) (3) Dyspnea (4) CHF (congestive heart failure) (5) CKD (chronic kidney disease) (6) D-dimer, elevated Discharge diagnosis(1) Pulmonary edema (2) History of pulmonary artery thrombosis (3) History of DVT (deep vein thrombosis) (4) Dyspnea (5) CHF (congestive heart failure) (6) CKD (chronic kidney disease) (7) D-dimer, elevated (8) Acute on chronic renal failure Discharge time > 35 minutes Hospital Course: Patient is an 86 year old female who was admitted as per HPI. Patient very frail. Patient was treated with IV lasix. Edema and symptoms improved. Kidney functions improved to baseline. 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 All of patient's conditions are chronic. CXR revealed clearing. SOB improved. Patient was discharged home on hospice. See med rec. Patient was back at baseline upon discharge. Decreased Eliquis dose upon discharged due to CKD. Disposition: 50 DISCHARGED TO HOSPICE -HOME Condition: Stable Health Concerns: Post Hospitalization: new medications and changes needed to prevent readmission or further decline. Pt educated and given instructions on all concerns. Plan of Treatment: Continue with present treatment and follow up plan. Pt is to keep follow up appointment as instructed and take medications as ordered. Prescriptions: New Eliquis 2.5 mg Tablet 2.5 mg PO BID Qty: 60 RF: 0 Transmission Status: Received by [facility] #[id number] furosemide [Lasix] 20 mg Tablet 20 mg PO QAM 30 Days Qty: 30 RF: 0 Transmission Status: Received by [facility] #[id number] potassium chloride 10 mEq Capsule, Extended Release 10 meq PO DAILY Qty: 30 RF: 0 Transmission Status: Received by [facility] #[id number] No Action amlodipine 5 mg tablet 5 mg PO DAILY - Follow ups/Referrals Follow ups/Referrals: BRAD GONZALEZ [Primary Care Provider] - 3 days - Instructions Instructions: Shortness of Breath, Adult, [id number], Home Oxygen Use, Adult, Weakness, [id number], Indwelling Urinary Catheter Care, Adult, [id number], Chronic Kidney Disease, Adult, [id number], Heart Failure, Diagnosis, [id number], Hospice, Pulmonary Edema, [id number], End-Stage Kidney Disease Forms: Excuse From Work or School, Precautions for COVID19, [facility], Patient Portal, Social Distancing Print Language: [place]
== END 2021-11-24 14:03 | disposition hospice, home (50) ==
LOC: U 14:38 → ER 14:38 → U 22:32 → MED/SURG 11-18 14:57
PROVIDERS: ADMIT Internal Medicine; ATTEND Internal Medicine